=== PATIENT | female | born 1965 | race Caucasian/White ===

== ENCOUNTER → 2017-08-18 | Outpatient (CLI) | payer OTHER | LOC: BMCIMAGING 08:49 | PROVIDERS: ATTEND Internal Medicine | DX: N93.9 Abnormal uterine and vaginal bleeding, unspecified (principal); D25.9 Leiomyoma of uterus, unspecified; R93.8 Abnormal findings on diagnostic imaging of other specified body structures; N63.11 Unspecified lump in the right breast, upper outer quadrant | CPT/HCPCS: G0204 ==

== ENCOUNTER → 2018-04-06 | Outpatient (CLI) | payer OTHER | LOC: BMCIMAGING 11:08 | PROVIDERS: ATTEND Internal Medicine Rheumatology | DX: M25.861 Other specified joint disorders, right knee (principal); M25.862 Other specified joint disorders, left knee ==

== ENCOUNTER 2018-07-05 15:13 | Emergency (ER) | payer OTHER ==
[2018-07-05 15:17] VITALS: BP 101/74
--- NOTE | 2018-07-05 15:42 | EDPHY ---
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 About an hour ago she noticed a very faint rash to her upper chest. No spread to the rest of her body or extremities. No oral swelling or tingling. No GI symptoms. No shortness of breath. No mucosal involvement. Severity: Mild Modifying factors: She did take Zyrtec this morning REVIEW OF SYSTEMS: Constitutional: denies: chills, fever, recent illness, recent injury EENTM: denies: blurred vision, double vision, nose congestion Respiratory: denies: cough, shortness of breath Cardiac: denies: chest pain, irregular heart rate, lightheadedness, palpitations Gastrointestinal/Abdominal: denies: abdominal pain, diarrhea, nausea, vomiting, blood streaked stools Genitourinary: denies: dysuria, frequency, hematuria, pain Musculoskeletal: denies: joint pain, muscle pain Skin: denies: lesions, rash, jaundice, bruising Neurological: denies: headache, numbness, paresthesia, tingling, dizziness, weakness Hematologic/Lymphatic: denies: blood clots, easy bleeding, easy bruising Immunologic/allergic: denies: HIV/AIDS, transplant 10 systems reviewed and negative except as noted EXAM: GENERAL: Well-appearing, well-nourished and in no acute distress. HEAD: Atraumatic, normocephalic. EYES: Pupils equal round and reactive to light, extraocular movements intact, sclera anicteric, conjunctiva are normal. ENT: TMs normal, nares patent, oropharynx clear without exudates. Moist mucous membranes. NECK: Normal range of motion, supple without lymphadenopathy or JVD. LUNGS: Breath sounds clear to auscultation bilaterally and equal. No wheezes rales or rhonchi. HEART: Regular rate and rhythm without murmurs, rubs or gallops. ABDOMEN: Soft, nontender, normoactive bowel sounds. No guarding, no rebound. No masses appreciated. BACK: No CVA tenderness, no spinal tenderness, step-offs or deformities EXTREMITIES: Normal range of motion, no pitting or edema. No clubbing or cyanosis. NEUROLOGICAL: Cranial nerves II through XII grossly intact. Normal speech, normal gait. 5/5 strength, normal movement in all extremities, normal sensation , normal reflexes PSYCH: Normal mood, normal affect. SKIN: Very faint johann rash to upper chest. Nonblanching. Not urticarial. No blistering. No ulcerations or scaling. Source: Patient Exam Limitations: No limitations - Medical/Surgical History Hx Asthma: No Hx Chronic Respiratory Disease: No Hx Diabetes: No Hx Cardiac Disease: No Hx Renal Disease: No Hx Cirrhosis: No Hx Alcoholism: No Hx HIV/AIDS: No Hx Splenectomy or Spleen Trauma: No Other PMH: sinus sx - Family History Significant Family History: No pertinent family hx - Social History Smoking Status: Never smoked Alcohol Use: None Constitutional: Initial Vital Signs Temperature (C) 36.6 C 07/05/18 15:15 Heart Rate 82 07/05/18 15:15 Respiratory Rate 18 07/05/18 15:15 Blood Pressure 101/74 07/05/18 15:15 O2 Sat (%) 96 07/05/18 15:15 O2 Delivery Mode Room Air Allergies/Adverse Reactions: No Known Allergies Allergy (Unverified 07/05/18 15:14) Home Medications: Medication Instructions Recorded LaMICtal 07/05/18 Zyrtec 07/05/18 Medical Decision Making ED Course/Re-evaluation: The patient has a very slight dermatitis type rash not consistent with Millard Clint's or toxic ectodermal necrolysis. The no mucosal involvement. No respiratory symptoms. The patient states that she came simply to make sure was not the "serious type of rash". She is well appearing. She will discontinue the medication until she follows up with her psychiatrist tomorrow. At this point it does not appear that she needs any acute treatment. We discussed indications for returning to the department. She is in agreement with this plan. Differential Diagnosis: Partial list of the Differential diagnosis considered include but were not limited to; dermatitis, medication reaction and although unlikely based on the history and physical exam, I also considered Millard Clint's, TEN, HELLP syndrome I discussed these differential diagnoses and the plan with the patient as well as the usual and expected course. The patient understands that the diagnosis is provisional and that in medicine we are not always correct and that further workup is often warranted. Usual and customary warnings were given. All of the patient's questions were answered. The patient was instructed to return to the emergency department should the symptoms at all worsen or return, otherwise to followup with the physician as we discussed. Departure - Departure Disposition: Home, Routine, Self-Care Clinical Impression: Rash Medication reaction Qualifiers: Encounter type: initial encounter Qualified Code(s): T50.905A - Adverse effect of unspecified drugs, medicaments and biological substances, initial encounter Condition: Fair Instructions: Dermatitis (ED) Referrals: Marjorie Billingsley MD [Primary Care Provider] - As per Instructions
== END 2018-07-05 15:48 | disposition home or self-care (01) ==
DX: L27.0 Generalized skin eruption due to drugs and medicaments taken internally (principal); T42.6X5A Adverse effect of other antiepileptic and sedative-hypnotic drugs, initial encounter

== ENCOUNTER → 2018-10-05 | Outpatient (CLI) | payer OTHER | LOC: BMCIMAGING 08:51 | PROVIDERS: ATTEND Podiatrist Foot & Ankle Surgery | DX: M79.671 Pain in right foot (principal); M79.672 Pain in left foot ==

== ENCOUNTER → 2018-11-22 | Outpatient (CLI) | payer OTHER | LOC: FIMAGING 09:46 | PROVIDERS: ATTEND Physician Assistant | DX: M17.11 Unilateral primary osteoarthritis, right knee (principal); M71.21 Synovial cyst of popliteal space [Baker], right knee ==

== ENCOUNTER 2018-12-13 05:57 | Inpatient (IN) | payer OTHER ==
[~2018-12-13 05:57] MED LIST: D5W IV ONE; VANCOMYCIN IV ONE
[2018-12-13] MEDS ORDERED: D5W IV ONE (06:00)
[2018-12-13] MEDS ORDERED: VANCOMYCIN IV ONE (06:00)
[2018-12-13] MEDS ORDERED: TRANEXAMIC ACID 1,000 MG in NS 100 ML IV ONE (06:00)
[2018-12-13] MEDS ORDERED: VANCOMYCIN PHARMACY TO DOSE MISC ONE (06:00)
[2018-12-13] MEDS ORDERED: FAMOTIDINE 20 MG TAB PO ONE (06:38)
[2018-12-13] MEDS ORDERED: ROPIVACAINE 0.2% 80 MG, EPINEPHrine 0.2 MG, KETOROLAC TROMETHAMINE 30 MG in SYRINGE 0 ML IU ONE (06:38)
[2018-12-13] MEDS ORDERED: ACETAMINOPHEN 325 MG TAB PO ONE (06:38)
[2018-12-13] MEDS ORDERED: LR 1,000 ML IV ONE (06:40)
--- NOTE | 2018-12-13 06:44 | PDIAF ---
- Diagnosis Diagnosis: right knee pf djd Code Status: Full Code - Medication Management Discharge Medications: electronically signed and located in the Home Medication List. - Orders Services needed: Physical Therapy Diet Recommendation: no restrictions on diet Diet Texture: Regular Texture Diet Additional Instructions: TOTAL JOINT ARTHROPLASTY DISCHARGE INSTRUCTIONS 1. Your surgeon follows the [facility] protocol for reducing your risk of DVT (blood clots) following surgery. Medication will be ordered to prevent blood clots. A sudden increase in calf pain and/or swelling could indicate a blood clot in your leg. If this occurs, please call your surgeon or his/her instructional assistant. An ultrasound of the leg may be necessary to diagnose a blood clot. If you have conditions that make you a higher risk for blood clots, your surgeon may use more aggressive ways to prevent them. Notify your surgeon if you think you are a high risk for blood clots. 2. Wear your white surgical stockings (SARITA hose) for 2 weeks. This decreases your swelling and may help prevent blood clots. It is ok to remove SARITA hose at night time to give your legs a break. 3. Swelling and bruising in the surgical leg is common. If you feel that it is excessive, please notify your surgeon. 4. Elevate your surgical leg with the ankle above the hip several times every day. Please keep the leg straight when you elevate by putting pillows under your foot. Do not put pillows under your knee. This will make being able to fully straighten more difficult. This is uncomfortable, but try to do it as much as possible. 5. For total knee replacements use compressive wrap on your knee for 3-5 days after surgery, then you can discontinue it. 6. Use a walker or crutches for 1-2 weeks. Progress your weight-bearing as tolerated. You may start to use a cane when you feel stable and safe. 7. You will receive physical therapy instructions in the hospital. Continue those exercises at home. There are additional exercises in the total joint booklet you were given before surgery. Outpatient physical therapy will begin 7- 10 days after surgery. Please schedule this in advance. 8. Use ice on your knee at least 3-5 times every day for 30 minutes. This helps reduce pain and swelling. Also use it at night before falling asleep. 9. Leave your surgical dressing in place for 2 weeks. Your dressing is water resistant, but not waterproof. Cover it with Saran Wrap or Fnnjf-i-Ckaf before showering. You may shower as soon as you feel safe entering a shower. If you notice bleeding from your incision 2 or 3 days after surgery, please notify your surgeon. 10. Due to narcotics, decreased activity and altered diet, most patients experience constipation after surgery. Use [id number] stool softeners while you are on narcotics. 11. You may drive a car when you are comfortable bearing weight, have good muscular control of your leg and are off narcotics. This usually occurs 2-4 weeks after surgery, depending on which leg was operated on. 12. If there are questions not addressed here, please refer the [facility] book given for more information. If you still have questions, please contact your surgeon s office. 13. If you have a life-threatening emergency, please call 911 and go to the emergency room immediately. For non-life threatening emergencies, please call your physicians office for advice before going to the emergency room. - Follow Up Care Current Providers and Referrals: Marjorie Billingsley MD [Primary Care Provider] - Fernando Kumar MD [Medical Doctor] -
--- NOTE | 2018-12-13 06:44 | PDHPUP ---
History & Physical Update H&P update statement: This history and physical update is based on an assessment of the patient which was completed after admission or registration (within 24 hours), but prior to the surgery/procedure. H&P update: no change in patient's condition since H&P completed
[2018-12-13] MEDS ORDERED: CEFAZOLIN 2 GM/DEXTROSE/100 ML BAG IV ONE (07:18)
[2018-12-13] MEDS ORDERED: ceFAZolin 1 GM/5 ML SYR ONE (08:01)
[2018-12-13] MEDS ORDERED: BUPIVACAINE/EPI 0.5% 30 ML SDV ONE (08:01)
[2018-12-13] MEDS ORDERED: THROMBIN (BOVINE) 5,000 UNIT VIAL TP ONE (08:03)
[2018-12-13] MEDS ORDERED: CALCIUM CHLORIDE 1 GM/10 ML INJ ONE (08:03)
[2018-12-13] MEDS ORDERED: MIDAZOLAM 2 MG/2 ML VIAL ONE (08:12)
[2018-12-13] MEDS ORDERED: fentaNYL 100 MCG/2 ML INJ ONE (08:19)
[2018-12-13] MEDS ORDERED: PROPOFOL/EMULSION 500 MG/50 ML BOTTLE IV ONE (08:19)
--- NOTE | 2018-12-13 08:21 | PDANEPAE ---
ANE Past Medical History - Cardiovascular History Hx Hypertension: No Hx Arrhythmias: No Hx Chest Pain: No Hx Coronary Artery / Peripheral Vascular Disease: No Hx CHF / Valvular Disease: No Hx Palpitations: No - Pulmonary History Hx COPD: No Hx Asthma/Reactive Airway Disease: Yes Hx Recent Upper Respiratory Infection: No Hx Oxygen in Use at Home: No Hx Sleep Apnea: No Sleep Apnea Screening Result - Last Documented: Negative Pulmonary History Comment: NO MEDS, ALLERGENS TRIGGER ASTHMA. 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 PROLAPSED UTERUS - Chronic Pain History Chronic Pain: Yes (L knee, foot burser) - Surgical History Prior Surgeries: SINUS SURGERY ANE Review of Systems Review of Systems: - Exercise capacity Exercise capacity: >=4 METS, limited by disability METS (RN): 4 METS ANE Patient History - Allergies Allergies/Adverse Reactions: adhesive Allergy (Verified 12/13/18 06:52) amoxicillin [From Augmentin] Allergy (Verified 11/29/18 15:43) Other-Enter Comments clavulanic acid [From Augmentin] Allergy (Verified 11/29/18 15:43) Other-Enter Comments egg [eggs] Allergy (Verified 11/29/18 15:43) Other-Enter Comments lamotrigine Allergy (Verified 12/13/18 06:53) - Home Medications Home Medications: Cetirizine [ZyrTEC 10 mg (*)] 10 mg PO DAILY 07/05/18 [Last Taken 12/12/18] lamoTRIgine [Lamictal] 200 mg PO DAILY 07/05/18 [Last Taken 12/13/18] Chlorpheniramine Maleate [Aller-Chlor] 4 mg PO DAILY PRN 11/22/18 [Last Taken ] Cholecalciferol Vit D3 [Vitamin D3 (*)] 2,000 units PO DAILY 11/22/18 [Last Taken 12/08/18] Herbals/Supplements -Info Only 1 ea PO DAILY 11/22/18 [Last Taken 12/06/18] Naproxen Sodium [Aleve 220 MG (*)] 220 mg PO DAILY 11/22/18 [Last Taken 12/08/18 ] Prasterone (Dhea) [Dhea 25] 25 mg PO DAILY 11/22/18 [Last Taken 12/09/18] Pseudoephedrine HCl [Sudafed] 30 mg PO DAILY PRN 11/22/18 [Last Taken 11/29/18] Famotidine [Pepcid 20 MG (*)] 20 mg PO DAILY 11/29/18 [Last Taken 12/13/18] - NPO status NPO Since - Liquids (Date): 12/13/18 NPO Since - Liquids (Time): 05:30 NPO Since - Solids (Date): 12/12/18 NPO Since - Solids (Time): 19:00 - Anes Hx Anes Hx: no prior problems - Smoking Hx Smoking Status: Never smoked Marijuana use: Yes - Alcohol Use Alcohol Use: Rarely - Family Anes Hx Family Anes Hx: neg - N/A Family Hx Anesthesia Complications: NONE ANE Labs/Vital Signs - Vital Signs Blood Pressure: 124/75 Heart Rate: 90 Respiratory Rate: 16 O2 Sat (%): 95 Height: 170.18 cm Weight: 58.967 kg ANE Physical Exam - Airway Neck exam: FROM Mallampati Score: Class 2 Mouth exam: normal dental/mouth exam - Pulmonary Pulmonary: no respiratory distress, no rales or rhonchi, clear to auscultation - Cardiovascular Cardiovascular: regular rate and rhythym, no murmur, rub, or gallop - ASA Status ASA Status: II ANE Anesthesia Plan Anesthesia Plan: MAC, spinal Regional Anesthesia: single shot NB, adductor canal FNB Total IV Anesthesia: No
[2018-12-13] MEDS ORDERED: BUPIVACAINE/DEXTROSE 7.5MG/ML 2 ML SPINAL AMP SP ONE (08:22)
[2018-12-13] MEDS ORDERED: LIDOCAINE 2% 5 ML SDV ONE (08:22)
[2018-12-13] MEDS ORDERED: PHENYLEPHRINE HCL 100 MCG/ML SYR ONE (08:47)
[2018-12-13] MEDS ORDERED: RANITIDINE 50 MG/2 ML VIAL ONE (08:49)
[2018-12-13] MEDS ORDERED: HYDROCODONE/APAP 5/325 TAB PO PRN (09:01)
[2018-12-13] MEDS ORDERED: fentaNYL 100 MCG/2 ML INJ IVP PRN (09:01)
[2018-12-13] MEDS ORDERED: oxyCODONE IR 5 MG TAB PO PRN ×2 (09:01→09:26)
[2018-12-13] MEDS ORDERED: MIDAZOLAM 2 MG/2 ML VIAL IVP ONE (09:01)
[2018-12-13] MEDS ORDERED: ACETAMINOPHEN 500 MG TAB PO PRN (09:01)
[2018-12-13] MEDS ORDERED: ONDANSETRON 4 MG/2 ML VIAL IVP PRN ×2 (09:01→09:26)
[2018-12-13] MEDS ORDERED: PHENYLEPHRINE HCL 100 MCG/ML SYR IVP PRN (09:01)
[2018-12-13] MEDS ORDERED: NALOXONE HCL 0.4 MG/ML INJ IVP PRN (09:01)
[2018-12-13] MEDS ORDERED: LR 500 ML IV PRN (09:01)
[2018-12-13] MEDS ORDERED: TEMAZEPAM 15 MG CAP PO PRN (09:26)
[2018-12-13] MEDS ORDERED: POLYETHYLENE GLYCOL 3350 17 GM PKT PO PRN (09:26)
[2018-12-13] MEDS ORDERED: ONDANSETRON DISINTEGRATING 4 MG TAB PO PRN (09:26)
[2018-12-13] MEDS ORDERED: MAGNESIUM HYDROXIDE 30 ML UDCUP PO PRN (09:26)
[2018-12-13] MEDS ORDERED: CYCLOBENZAPRINE 10 MG TAB PO PRN (09:26)
[2018-12-13] MEDS ORDERED: METOCLOPRAMIDE 10 MG/2 ML VIAL IVP PRN (09:26)
[2018-12-13] MEDS ORDERED: PROMETHAZINE HCL 25 MG SUPPR PR PRN (09:26)
[2018-12-13] MEDS ORDERED: DIPHENOXYLATE/ATROPINE LOMOTIL 1 TAB PO PRN (09:26)
[2018-12-13] MEDS ORDERED: BISACODYL 10 MG SUPP PR PRN (09:26)
[2018-12-13] MEDS ORDERED: PROMETHAZINE HCL 25 MG/ML INJ IVP PRN (09:26)
[2018-12-13] MEDS ORDERED: LACTULOSE 20 GM/30 ML UDCUP PO PRN (09:26)
[2018-12-13] MEDS ORDERED: diphenhydrAMINE 25 MG CAP PO PRN (09:26)
--- NOTE | 2018-12-13 09:26 | POSTOPPROG ---
Post Op Note Date of Operation: 12/13/18 Surgeon: Fernando Kumar Co Founder And Cto: geronimo Anesthesiologist: paco Anesthesia: Spinal Pre-op Diagnosis: right pf arthritis Post-op Diagnosis: same Indication: same Procedure: right knee pf replacement with lateral release Inf/Abcess present in the surg proc area at time of surgery?: No Depth: Deep Incisional (Fascial) EBL: 50-100
[2018-12-13] MEDS ORDERED: PSEUDOEPHEDRINE HCL 30 MG TAB PO PRN (09:27)
[2018-12-13] MEDS ORDERED: ROPIVACAINE HCL 150 MG/30 ML INJ ONE (09:30)
[2018-12-13] MEDS ORDERED: LR 1,000 ML IV SCH (09:30)
--- NOTE | 2018-12-13 09:45 | PDMN ---
Medical Necessity Medical necessity: [facility]: S700 knee arthroplasty R knee PF replacement with lateral release [facility]# [id number] APPROVED FROM 12/13-12/14 FOR INPATIENT STAY
--- NOTE | 2018-12-13 11:00 | POSTANESTH ---
Post Anesthetic Evaluation Cardiovascular Status: Normal, Stable Respiratory Status: Normal, Stable Level of Consciousness/Mental Status: Can Participate in Eval Pain Control: Adequate, Prn Tx Ordered Nausea/Vomiting Control: Adequate, Prn Tx Ordered Complications Possibly Related to Anesthesia: None Noted
[2018-12-13] MEDS: ACETAMINOPHEN 325 MG TAB PO SCH ×2 (12:15→18:49)
[2018-12-13] MEDS: TRANEXAMIC ACID 650 MG TAB PO SCH ×2 (15:04→21:18)
[2018-12-13] MEDS ORDERED: VANCOMYCIN 750 MG in D5W 150 ML IV ONE (19:30)
[2018-12-13] MEDS: SENNOSIDES/DOCUSATE SODIUM TAB PO SCH (19:52)
[2018-12-13] MEDS: ASPIRIN 325 MG TAB PO SCH (19:52)
[2018-12-13] MEDS ORDERED: FAMOTIDINE 20 MG TAB PO SCH (21:00)
[2018-12-14] MEDS: ACETAMINOPHEN 325 MG TAB PO SCH ×2 (00:49→06:04)
[2018-12-14] MEDS: TRANEXAMIC ACID 650 MG TAB PO SCH (06:04)
--- NOTE | 2018-12-14 07:17 | PDIAF ---
- Diagnosis Diagnosis: right knee pf djd Code Status: Full Code - Medication Management Discharge Medications: electronically signed and located in the Home Medication List. - Orders Services needed: Physical Therapy Diet Recommendation: no restrictions on diet Diet Texture: Regular Texture Diet Additional Instructions: TOTAL JOINT ARTHROPLASTY DISCHARGE INSTRUCTIONS 1. Your surgeon follows the [facility] protocol for reducing your risk of DVT (blood clots) following surgery. Medication will be ordered to prevent blood clots. A sudden increase in calf pain and/or swelling could indicate a blood clot in your leg. If this occurs, please call your surgeon or his/her curriculum assistant. An ultrasound of the leg may be necessary to diagnose a blood clot. If you have conditions that make you a higher risk for blood clots, your surgeon may use more aggressive ways to prevent them. Notify your surgeon if you think you are a high risk for blood clots. 2. Wear your white surgical stockings (SARITA hose) for 2 weeks. This decreases your swelling and may help prevent blood clots. It is ok to remove SARITA hose at night time to give your legs a break. 3. Swelling and bruising in the surgical leg is common. If you feel that it is excessive, please notify your surgeon. 4. Elevate your surgical leg with the ankle above the hip several times every day. Please keep the leg straight when you elevate by putting pillows under your foot. Do not put pillows under your knee. This will make being able to fully straighten more difficult. This is uncomfortable, but try to do it as much as possible. 5. For total knee replacements use compressive wrap on your knee for 3-5 days after surgery, then you can discontinue it. 6. Use a walker or crutches for 1-2 weeks. Progress your weight-bearing as tolerated. You may start to use a cane when you feel stable and safe. 7. You will receive physical therapy instructions in the hospital. Continue those exercises at home. There are additional exercises in the total joint booklet you were given before surgery. Outpatient physical therapy will begin 7- 10 days after surgery. Please schedule this in advance. 8. Use ice on your knee at least 3-5 times every day for 30 minutes. This helps reduce pain and swelling. Also use it at night before falling asleep. 9. Leave your surgical dressing in place for 2 weeks. Your dressing is water resistant, but not waterproof. Cover it with Saran Wrap or Rvgef-s-Kjuy before showering. You may shower as soon as you feel safe entering a shower. If you notice bleeding from your incision 2 or 3 days after surgery, please notify your surgeon. 10. Due to narcotics, decreased activity and altered diet, most patients experience constipation after surgery. Use rpbo-fxg-muunplb stool softeners while you are on narcotics. 11. You may drive a car when you are comfortable bearing weight, have good muscular control of your leg and are off narcotics. This usually occurs 2-4 weeks after surgery, depending on which leg was operated on. 12. If there are questions not addressed here, please refer the [facility] book given for more information. If you still have questions, please contact your surgeon s office. 13. If you have a life-threatening emergency, please call 911 and go to the emergency room immediately. For non-life threatening emergencies, please call your physicians office for advice before going to the emergency room. - Follow Up Care Current Providers and Referrals: Marjorie Billingsley MD [Primary Care Provider] - Fernando Kumar MD [Medical Doctor] -
--- NOTE | 2018-12-14 07:18 | SOAPPROG ---
SOAP Progress Note Assessment/Plan: Assessment: s/p pf replacement Plan:d/c home dvt precautions reviewed f/u at two weeks 12/14/18 07:17 Subjective: no pain no cp or sob Objective: Vital Signs Temp Pulse Resp BP Pulse Ox 36.6 C 81 16 109/68 96 12/14/18 04:00 12/14/18 04:00 12/14/18 04:00 12/14/18 04:00 12/14/18 04:00 Laboratory Results 12/14/18 04:28 12/13/18 12/14/18 12/15/18 05:59 05:59 05:59 Intake Total 1005 1100 Output Total 2035 1350 Balance -1030 -250 dressing intact intact pf,df,ehl toes warm and pink neg homans phoebe xrays stable anatomic alignement ICD10 Worksheet Patient Problems: Problems Problem Status Onset Arthritis of knee Acute - ICD10 Problem Qualifiers (1) Arthritis of knee
[2018-12-14 07:50] VITALS: BP 131/88
[2018-12-14] MEDS: ASPIRIN 325 MG TAB PO SCH (08:27)
[2018-12-14] MEDS: SENNOSIDES/DOCUSATE SODIUM TAB PO SCH (08:28)
[2018-12-14] MEDS ORDERED: lamoTRIgine 100 MG TAB PO SCH (09:00)
[2018-12-14] MEDS ORDERED: PRASTERONE 25 MG PO SCH (09:00)
[2018-12-14] MEDS ORDERED: FAMOTIDINE 20 MG TAB PO SCH (09:00)
[2018-12-14] MEDS ORDERED: PNEUMOCOCCAL 0.5ML VACCINE VIAL (PNEUMOVAX 23) IM ONE (09:20)
--- NOTE | 2018-12-14 11:07 | ASMTLACE ---
CHAE Length of stay for Answers: 2 days current admission Acuity / Level of Answers: Yes Care: Did the patient have an inpatient admission? Comorbidities - select Answers: Opioid dependence all that apply / Chronic pain # of Emergency department Answers: 1-2 visits in the last 6 months Social determinants Answers: Mental health diagnosis (anxiety, depression, pers onality disorders, etc.) Score: 13 Date Signed: 12/14/2018 11:06 AM Electronically Signed By:GUALBERTO Page
--- NOTE | 2018-12-14 11:09 | ASMTCMCOM ---
CM Note CM Note Notes: Pt had planned OA of knee, resides with spouse. PT rec home/outpatient. Pt medically stable for d/c, pt declines HHC. Pt has DME. Date Signed: 12/14/2018 11:08 AM Electronically Signed By:GUALBERTO Page
--- NOTE | 2018-12-16 18:28 | GOP ---
[f rep st] OPERATIVE REPORT DATE OF OPERATION: 12/13/2018 SURGEON: Fernando Kumar MD YARDING ENGINEER: Candido Agustin, DIESEL FITTER MECHANIC, [facility] [place], due to medical necessity for the entirety of the case. PREOPERATIVE DIAGNOSIS: Right knee patellofemoral arthritis and maltracking. POSTOPERATIVE DIAGNOSIS: Right knee patellofemoral arthritis and maltracking. PROCEDURE PERFORMED: Right knee patellofemoral arthroplasty and lateral release-open. FINDINGS: SPECIMENS: None to Pathology. INDICATIONS: The patient is a 53-year-old woman with end-stage arthritis to her right patellofemoral joint. She presents today for elective patellofemoral replacement and realignment. I have outlined the surgical procedure, risks, benefits, alternatives, she wishes to proceed. Written consent was s igned and placed in patient's chart. DESCRIPTION OF PROCEDURE: The patient was identified `the preanesthesia area. The right knee clearl y demarcated as the operative site with indelible marker. She was given 2 g of Ancef intravenously i n route to the operative suite. In the OR, a spinal anesthetic was placed followed by sedation. Att ention was turned to the right knee, which was sterilely prepped and draped. A tourniquet was applie d to the upper thigh. The appropriate time-out procedure was carried out. The limb was then sterile ly prepped and draped in the usual fashion. Tourniquet was inflated after exsanguination of the limb . A standard anterior midline incision was made. Thick subcutaneous flaps were elevated. A separat e percutaneous incision was made over the mid femur and 2 pins were then placed for the femoral refer ence array. A femoral checkpoint was placed. The bony landmarks were entered in the computer using the MAKOplasty software. A size 2 patellofemoral component was selected and positioned appropriately . Resection was made with the Dremel and a trial reduction was carried out. The patella was then ev erted, cut in a freehand cutting technique and a drill hole was made for 35 mm patella. The bony tino face was thoroughly cleansed and dried, and the size 2 patellofemoral component cemented into positio n. Concomitantly, the patella component was press-fit into position. The knee tracked centrally thr ough the flexion-extension arc. An open lateral release had been performed with Bovie cautery. The wound was copiously irrigated. The capsule and soft tissue were injected with a joint cocktail of ro pivacaine, Toradol and epinephrine. The medial arthrotomy was then imbricated with #1 Ethibond sutur e. The knee closed using 2-0 Monocryl and chelsea and a sterile dressing was applied. The patient w as awakened, extubated and taken to the recovery room in good, stable condition. TOTAL TOURNIQUET TIME: 35 minutes. COMPLICATIONS: None. IMPLANTS: MAKOplasty Restore a size 2 femur and a Triathlon Tritanium asymmetric patella A35. DISPOSITION: To the recovery room, then the floor. /[id number]/MODL
--- NOTE | 2018-12-17 03:35 | GDS ---
[f rep st] DISCHARGE SUMMARY ADMIT DIAGNOSIS: Right knee degenerative joint disease, patellofemoral joint. POSTOP DIAGNOSIS: Right knee degenerative joint disease, patellofemoral joint. PROCEDURE: Right patellofemoral MAKOplasty and open lateral release. OPERATIVE INDICATIONS: The patient is a 53-year-old woman with end-stage arthritis to the patellofem oral joint of the right knee. She has failed all attempts at conservative management. I therefore r ecommended operative intervention. I outlined the surgical procedure, risks, benefits, and alternati ves, and she wished to proceed. HOSPITAL COURSE: The patient was admitted after uncomplicated patellofemoral arthroplasty. She tole rated the procedure well. She had no postoperative complications. At the time of discharge, she is tolerating an oral diet. Pain was well controlled on oral medicines. She is voiding without difficu lty. Dressing is clean, dry, intact. Negative Homans bilaterally. X-rays are anatomic. DISCHARGE MEDICATIONS: Oxycodone 5 mg 1-2 every 6 hours p.r.n. pain, aspirin 325 mg p.o. daily for 6 weeks. FOLLOWUP: In 6 weeks. /[id number]/MODL
== END 2018-12-14 11:27 | disposition home or self-care (01) | DRG 489 ==
LOC: F3N 05:57
PROVIDERS: ADMIT Orthopaedic Surgery; ATTEND Orthopaedic Surgery
PROC: 0QRD0JZ Replacement of Right Patella with Synthetic Substitute, Open Approach (ICD-10-PCS; principal; 2018-12-13 10:45)
PROC: 8E0Y0CZ Robotic Assisted Procedure of Lower Extremity, Open Approach (ICD-10-PCS; principal; 2018-12-13 10:45)
DX: M17.11 Unilateral primary osteoarthritis, right knee (principal); M71.21 Synovial cyst of popliteal space [Baker], right knee; F31.9 Bipolar disorder, unspecified; Z23 Encounter for immunization
CPT/HCPCS: 97116-GP; 97161-GP; 97165-GO; 97530-GP; 97535-GO; C1713; G0009; J0171; J0690; J1885; J2250; J2370; J2704; J2780; J2795; J3010; J3370

== ENCOUNTER → 2019-01-20 | Outpatient (CLI) | payer OTHER | LOC: BMCIMAGING 08:52 | PROVIDERS: ATTEND Orthopaedic Surgery | DX: M25.562 Pain in left knee (principal); Z96.651 Presence of right artificial knee joint ==

== ENCOUNTER → 2019-04-26 | Outpatient (CLI) | payer OTHER | LOC: FIMAGING 13:45 ==